=== PATIENT | female | born 1960 | race Caucasian/White ===

== ENCOUNTER 2021-08-05 10:45 | Emergency (ER) | payer MEDICARE ==
[~2021-08-05] VITALS: Ht 170.2 cm; Wt 50.0 kg
[~2021-08-05 10:45] MED LIST: BAYER LOW81 MG OR; DESYREL50 MG PO; LANOXIN0.25 MG PO; NAPROSYN500 MG OR; NIASPAN500 MG PO; PLAVIX75 MG PO; PRAVACHOL40 MG PO; PRILOSEC20 MG PO; VICODIN HP1 TAB OR; VITAMIN B-121000 MCG OR
[2021-08-05 11:38] LABS: IMMATURE GRANULOCYTES 0.2 % (0.0-5.0); MEAN CELL VOLUME 87.9 fL CALC (80.0-100.0); MEAN CORPUSCULAR HGB 27.5 pG CALC (26.0-32.0); MEAN CORPUSCULAR HGB CONC 31.3 g/dL CAL (32.0-36.0); NEUT# 2.87 thou/uL (2.00-7.15); RED BLOOD COUNT 4.22 mill/uL (4.20-5.60); RED CELL DISTRI WIDTH 14.5 % (11.5-15.5)
[2021-08-05 11:49] LABS: HEMATOCRIT 37.1 % (37.0-47.0); HEMOGLOBIN 11.6 g/dl (12.0-16.0)
[2021-08-05 11:55] LABS: ACT PARTIAL THROMBO TIME 22.3 SECONDS (20.0-32.5); ALKALINE PHOSPHATASE 65 u/l (38-126); ANION GAP 9 (6-22 (CALC)); BILIRUBIN, TOTAL 0.5 mg/dL (0.0-1.4); BUN 17 mg/dL (8-23); BUN/CREATININE RATIO 21 (12-20 (CALC)); CHLORIDE 105 mmol/l (95-108); CREATININE 0.8 mg/dL (0.5-1.0); GFR > 60 ML/MIN (>=60 (CALC)); GFR FOR AFR.AMER. > 60 ML/MIN (>=60 (CALC)); POTASSIUM 4.1 mmol/l (3.5-5.1); PROTHROMBIN TIME 10.3 SECONDS (9.0-12.5); SGOT/AST 27 u/l (9-36); SODIUM 141 mmol/l (137-146); TOTAL PROTEIN 7.6 g/dL (6.3-8.2)
[2021-08-05 12:03] LABS: CARBON DIOXIDE 31 mmol/l (22-30)
[2021-08-05 15:30] VITALS: BP 102/62
== END 2021-08-05 15:43 ==
LOC: ED 10:45
DX: I47.1 Supraventricular tachycardia (principal); I49.3 Ventricular premature depolarization; Z95.810 Presence of automatic (implantable) cardiac defibrillator; Z20.822 Contact with and (suspected) exposure to COVID-19